=== PATIENT | male | born 2000 | race Caucasian/White ===

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

== ENCOUNTER 2024-01-17 07:25 | Emergency (ER) | payer BC ==
[~2024-01-17] VITALS: Ht 177.8 cm; Wt 113.4 kg
[~2024-01-17 07:25] MED LIST changes: +CEPHALEXIN500 M1 PO
[2024-01-17] MEDS ORDERED: Ketorolac Tromethamine 15 MG/ML VIAL IV ONE (08:00)
[2024-01-17] MEDS ORDERED: SODIUM CHLORIDE 0.9% 1,000 ML IV ONE (08:00)
[2024-01-17 08:12] LABS: BASO % 0.5 % (0.0-1.0); EOS # 0.4 10*3/uL (0.0-0.4); HEMATOCRIT 44.6 % (42.0-52.0); LYMPH # 1.4 10*3/uL (1.3-4.4); LYMPH % 17.4 % (27.0-41.0); MEAN CELL VOLUME 85.8 fl (80.0-94.0); MEAN CORPUSCULAR HGB 27.3 pg (27.0-31.0); MEAN CORPUSCULAR HGB CONC 31.8 g/dl (33.0-37.0); MEAN PLATELET VOLUME 10.1 fl (9.6-12.3); MONO # 0.6 10*3/uL (0.1-1.0); MONO % 7.5 % (3.0-9.0); NEUT # 5.5 10*3/uL (2.3-7.9); NEUT % 69.2 % (47.0-73.0); PLATELET COUNT AUTOMATED 258 10*3/uL (130-400); RED CELL DISTRI WIDTH 13.2 % (0-14.5)
[2024-01-17 08:31] LABS: BUN 10 mg/dl (9-23); CHLORIDE 105 mmol/L (98-107)
[2024-01-17 08:40] LABS: BILIRUBIN Negative (Negative); BLOOD Negative (Negative); CLARITY Clear (Clear); COLOR Yellow (Yellow); GLUCOSE Negative (Negative); KETONE Trace (Negative); LEUKO ESTERASE Negative (Negative); NITRITE Negative (Negative); SPECIFIC GRAVITY 1.025 (1.001-1.030)
[2024-01-17 08:55] LABS: MUCOUS 1+; WBC 0-2 wbc/hpf (0-5)
[2024-01-17] MEDS ORDERED: MELOXICAM15 MG PO (09:22)
[2024-01-17] MEDS ORDERED: CYCLOBENZAPRINE5 M3 PO (09:22)
== END 2024-01-17 09:25 | disposition home or self-care (01) ==
LOC: ED 07:25
PROVIDERS: Emergency Medicine
DX: R10.9 Unspecified abdominal pain (principal); Z88.6 Allergy status to analgesic agent; Z88.8 Allergy status to other drugs, medicaments and biological substances